=== PATIENT | male | born 1995 | race Caucasian/White ===

== ENCOUNTER 2017-10-29 13:08 | Emergency (ER) | payer SELFPAY ==
[2017-10-29 13:13] VITALS: BP 135/75; PULSE 140; RESP 20; TEMP 99; O2SAT 97
[2017-10-29] MEDS ORDERED: SODIUM CHLOR 0.9% 1000 ML INJ 1,000 ML IV ONE ×2 (13:15→14:00)
[2017-10-29] MEDS ORDERED: SODIUM CHLORIDE 0.9% FLUSH 10 ML FLUSH IVF PRN (13:15)
[2017-10-29 13:18] VITALS: O2SAT 98
[2017-10-29 13:32] LABS: AUTOMATED NEUTROPHIL # 4.4 TH/MM3 (1.8-7.7); BASOPHIL # 0.2 TH/MM3 (0-0.2); BASOPHIL % 2.9 % (0.0-2.0); EOSINOPHIL # 0.3 TH/MM3 (0-0.4); EOSINOPHIL % 3.2 % (0.0-4.0); HEMATOCRIT 41.3 % (39.0-51.0); HEMOGLOBIN 13.8 GM/DL (13.0-17.0); LYMPH % 33.1 % (9.0-44.0); LYMPHOCYTE # 2.7 TH/MM3 (1.0-4.8); MEAN CELL VOLUME 89.1 FL (80.0-100.0); MEAN CORPUSCULAR HEMOGLOBIN 29.8 PG (27.0-34.0); MEAN CORPUSCULAR HGB CONC 33.5 % (32.0-36.0); MONO % 6.9 % (0.0-8.0); MONOCYTE # 0.6 TH/MM3 (0-0.9); NEUT % 53.9 % (16.0-70.0); PLATELET COUNT 265 TH/MM3 (150-450); RED BLOOD COUNT 4.64 MIL/MM3 (4.50-5.90); RED CELL DISTRIBUTION WIDTH 12.1 % (11.6-17.2); WHITE BLOOD COUNT 8.2 TH/MM3 (4.0-11.0)
[2017-10-29 13:41] LABS: CHLORIDE 103 MEQ/L (98-107); SODIUM (NA) 139 MEQ/L (136-145)
[2017-10-29 13:44] LABS: BICARBONATE 24.4 MEQ/L (21.0-32.0); BLOOD UREA NITROGEN 12 MG/DL (7-18); CALCIUM 8.8 MG/DL (8.5-10.1); GLUCOSE,RANDOM 74 MG/DL (74-106)
[2017-10-29 13:48] LABS: GLOMERULAR FILTRATION RATE 94 ML/MIN (>89)
--- NOTE | 2017-10-29 13:52 | PD ---
HPI Chief Complaint: Seizure Time Seen by Provider: 13:15 Travel History International Travel<30 days: No Contact w/Intl Traveler<30days: No Traveled to known affect area: No History of Present Illness HPI 22 yo M arrives by EMS 2/2 seizure at work. ems reports it was focal motor activity lasting less than one minute. vs normal on scene. pt has hx prior sz activity however no antiepileptics prescribed or used. Onset was sudden at work and resolve spontaneously. EMS reports the postictal state improved and ready to the ER. The patient in the ER has no specific medical complaint. He states he does not recall the events earlier in the morning however reports yesterday was a normal day with no recent illness or change in health. PFSH Past Medical History Anxiety: Yes Depression: Yes Heart Rhythm Problems: Yes (heart murmer) Diminished Hearing: No Immunizations Current: Yes Seizures: Yes Past Surgical History Tonsillectomy: Yes Social History Alcohol Use: Yes (A FEW TIMES PER WEEK) Tobacco Use: Yes (2 PACK PER DAY) Substance Use: Yes (MARIJUANA, XANAX) Allergies-Medications (Allergen,Severity, Reaction): Coded Allergies: No Known Allergies (Verified Adverse Reaction, Unknown, 10/29/17) Reported Meds & Prescriptions Reported Meds & Active Scripts Active No Active Prescriptions or Reported Medications Review of Systems Except as stated in HPI: all other systems reviewed are Neg General / Constitutional: No: Fever Cardiovascular: No: Chest Pain or Discomfort Neurologic: Positive: Seizures, No: Weakness Physical Exam Narrative GENERAL: 22-year-old male pleasant well-nourished well-developed no acute distress Vital Signs Date Time Temp Pulse Resp B/P (MAP) Pulse Ox O2 Delivery O2 Flow Rate FiO2 10/29/17 13:18 98 10/29/17 13:13 99.0 140 20 135/75 (95) 97 Pulses improved to 92 in the ER SKIN: Warm and dry. HEAD: Atraumatic. Normocephalic. EYES: Pupils equal and round. No scleral icterus. No injection or drainage. ENT: No nasal bleeding or discharge. Mucous membranes pink and moist. NECK: Trachea midline. No JVD. CARDIOVASCULAR: Regular rate and rhythm. RESPIRATORY: No accessory muscle use. Clear to auscultation. Breath sounds equal bilaterally. GASTROINTESTINAL: Abdomen soft, non-tender, nondistended. Hepatic and splenic margins not palpable. MUSCULOSKELETAL: Extremities without clubbing, cyanosis, or edema. No obvious deformities. NEUROLOGICAL: Awake and alert. Speech and mentation normal. There is some memory loss from today. Cranial nerves III through XII are normal. The patient moves all extremities normally. PSYCHIATRIC: Appropriate mood and affect; insight and judgment normal. Data Data Last Documented VS Vital Signs Date Time Temp Pulse Resp B/P (MAP) Pulse Ox O2 Delivery O2 Flow Rate FiO2 10/29/17 14:50 75 20 118/73 (88) 95 10/29/17 13:13 99.0 VS reviewed Orders Orders Complete Blood Count With Diff (10/29/17 13:15) Basic Metabolic Panel (Bmp) (10/29/17 13:15) Alcohol (Ethanol) (10/29/17 13:15) Drug Screen, Random Urine (10/29/17 13:15) Electrocardiogram (10/29/17 ) Blood Glucose (10/29/17 13:15) Ecg Monitoring (10/29/17 13:15) Iv Access Insert/Monitor (10/29/17 13:15) Oximetry (10/29/17 13:15) Sodium Chlor 0.9% 1000 Ml Inj (Ns 1000 M (10/29/17 13:15) Sodium Chloride 0.9% Flush (Ns Flush) (10/29/17 13:15) Sodium Chlor 0.9% 1000 Ml Inj (Ns 1000 M (10/29/17 14:00) Acetaminophen (Tylenol) (10/29/17 14:30) Ct Brain W/O Iv Contrast(Rout) (10/29/17 14:59) Labs Laboratory Tests Test 10/29/17 13:10 10/29/17 14:35 White Blood Count 8.2 TH/MM3 Red Blood Count 4.64 MIL/MM3 Hemoglobin 13.8 GM/DL Hematocrit 41.3 % Mean Corpuscular Volume 89.1 FL Mean Corpuscular Hemoglobin 29.8 PG Mean Corpuscular Hemoglobin Concent 33.5 % Red Cell Distribution Width 12.1 % Platelet Count 265 TH/MM3 Mean Platelet Volume 9.0 FL Neutrophils (%) (Auto) 53.9 % Lymphocytes (%) (Auto) 33.1 % Monocytes (%) (Auto) 6.9 % Eosinophils (%) (Auto) 3.2 % Basophils (%) (Auto) 2.9 % Neutrophils # (Auto) 4.4 TH/MM3 Lymphocytes # (Auto) 2.7 TH/MM3 Monocytes # (Auto) 0.6 TH/MM3 Eosinophils # (Auto) 0.3 TH/MM3 Basophils # (Auto) 0.2 TH/MM3 CBC Comment DIFF FINAL Differential Comment Blood Urea Nitrogen 12 MG/DL Creatinine 1.00 MG/DL Random Glucose 74 MG/DL Calcium Level 8.8 MG/DL Sodium Level 139 MEQ/L Potassium Level 4.1 MEQ/L Chloride Level 103 MEQ/L Carbon Dioxide Level 24.4 MEQ/L Anion Gap 12 MEQ/L Estimat Glomerular Filtration Rate 94 ML/MIN Ethyl Alcohol Level LESS THAN 3 MG/DL Urine Opiates Screen POS Urine Barbiturates Screen NEG Urine Amphetamines Screen NEG Urine Benzodiazepines Screen NEG Urine Cocaine Screen POS Urine Cannabinoids Screen NEG MDM Medical Decision Making Medical Screen Exam Complete: Yes Emergency Medical Condition: Yes Medical Record Reviewed: Yes Differential Diagnosis seizure, epilepsy, metabolic disarray, noncompliance, drug abuse Narrative Course CBC & BMP Diagram 10/29/17 13:10 Calcium Level 8.8 Pt has rested comfortably throughout ED stay. C/o headache at 224pm, Tylenol ordered. Pt asked to provide urine a few times however was unable to produce any. Work up is unremarkable. Pt will need follow up with neurology. Urine toxicology screen is positive for opioids and for cocaine. CT of the head added on due to the focality of the reported seizure event and concern for hypertensive bleed leading to seizure activity. CT HEAD: No acute bleed Diagnosis Primary Impression: Seizure Additional Impressions: Cocaine abuse Opioid abuse Cephalgia Qualified Codes: R51 - Headache Referrals: [facility] 2 days Med/Other Pt SpecificInfo: No Change to Meds Scripts No Active Prescriptions or Reported Meds Disposition: DISCHARGE HOME Condition: Stable Bhupinder Cervantes MD Oct 29, 2017 13:52
[2017-10-29 14:04] VITALS: BP 135/75; PULSE 81; RESP 20; O2SAT 100
[2017-10-29] MEDS ORDERED: ACETAMINOPHEN 325 MG TAB PO ONE (14:30)
[2017-10-29 14:50] VITALS: BP 118/73; PULSE 75; RESP 20; O2SAT 95
--- NOTE | 2017-10-29 15:39 | RADRPT ---
EXAM DATE/TIME: 10/29/2017 15:29 [facility] COMPARISON: CT BRAIN W/O CONTRAST, April 02, 2015, 19:04. INDICATIONS : Seizure. RADIATION DOSE: 59.34 CTDIvol (mGy) MEDICAL HISTORY : Seizures. SURGICAL HISTORY : None. ENCOUNTER: Initial ACUITY: 1 day PAIN SCALE: 0/10 LOCATION: cranial TECHNIQUE: Multiple contiguous axial images were obtained of the head. Using automated exposure control and adj ustment of the mA and/or kV according to patient size, radiation dose was kept as low as reasonably a chievable to obtain optimal diagnostic quality images. DICOM format image data is available electro nically for review and comparison. FINDINGS: CEREBRUM: The ventricles are normal for age. No evidence of midline shift, mass lesion, hemorrhage or acute in farction. No extra-axial fluid collections are seen. POSTERIOR FOSSA: The cerebellum and brainstem are intact. The 4th ventricle is midline. The cerebellopontine angle i s unremarkable. EXTRACRANIAL: The visualized portion of the orbits is intact. SKULL: The calvaria is intact. No evidence of skull fracture. CONCLUSION: No acute disease. Ahmet Godoy MD on October 29, 2017 at 15:36 Board Certified Radiologist. This report was verified electronically.
--- NOTE | 2017-10-31 00:31 | EKG ---
Date Performed: 10/29/2017 Time Performed: 13:12:38 PTAGE: 22 years EKG: SINUS TACHYCARDIA POSSIBLE LEFT ATRIAL ENLARGEMENT POSSIBLE RIGHT VENTRICULAR CONDUCTION DE LAY ABNORMAL RHYTHM ECG PREVIOUS TRACING : 07/11/2014 09.24 DOCTOR: Mumtaz Draper Interpretating Date/Time 10/31/2017 00:16:52
== END 2017-10-29 16:13 | disposition home or self-care (01) ==
LOC: PHED 13:08
DX: R56.9 Unspecified convulsions (principal); F14.10 Cocaine abuse, uncomplicated; F11.10 Opioid abuse, uncomplicated; R51 Headache; R00.0 Tachycardia, unspecified; R94.31 Abnormal electrocardiogram [ECG] [EKG]; F41.9 Anxiety disorder, unspecified; F32.9 Major depressive disorder, single episode, unspecified; F17.200 Nicotine dependence, unspecified, uncomplicated
CPT/HCPCS: 70450; 80048; 80307; 85025; 93005; 96360; 99285; J7030